=== PATIENT | female | born 1925 | race Caucasian/White ===

== ENCOUNTER 2016-10-31 12:27 | Emergency (ER) | payer OTHER, MEDICARE, BC ==
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
[2016-10-31] MEDS ORDERED: DIPH/PERTUSS(ACELL)/TETANUS VAC/PF 0.5 ML SYR (>=10YO) IM ONE (16:15)
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
[2016-10-31 18:56] VITALS: BP 144/80
== END 2016-10-31 18:30 | disposition home or self-care (01) ==
LOC: ER 12:27
DX: S81.812A Laceration without foreign body, left lower leg, initial encounter (principal); S20.212A Contusion of left front wall of thorax, initial encounter; R07.81 Pleurodynia; M79.662 Pain in left lower leg; V49.50XA Passenger injured in collision with unspecified motor vehicles in traffic accident, initial encounter; I10 Essential (primary) hypertension; Z85.828 Personal history of other malignant neoplasm of skin; Z23 Encounter for immunization
CPT/HCPCS: 71020; 71250; 90471; 90715; 99284

== ENCOUNTER 2017-01-19 07:23 | Emergency (ER) | payer MEDICARE, BC ==
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
[2017-01-19 08:10] LABS: PROTHROMBIN TIME 12.5 SEC (11.4-15.4)
[2017-01-19 08:11] LABS: ABSOLUTE EOSINOPHILS # (AUTO) 0.1 10^3/uL (0.0-0.6); ABSOLUTE LYMPHOCYTES (AUTO) 1.2 10^3/uL (0.5-4.7); ABSOLUTE MONOCYTES (AUTO) 0.6 10^3/uL (0.1-1.4); ABSOLUTE NEUT (AUTO) 4.2 10^3/uL (1.7-8.2); ALANINE AMINOTRANSFERASE 38 U/L (9-52); ALBUMIN 3.8 g/dL (3.5-5.0); ALKALINE PHOSPHATASE 89 U/L (38-126); ANION GAP 10 (5-19); ASPARTATE AMINO TRANSFERASE 30 U/L (14-36); BASOPHILS % (AUTO) 0.6 % (0-2); BILIRUBIN,DIRECT 0.3 mg/dL (0.0-0.4); BILIRUBIN,TOTAL 0.4 mg/dL (0.2-1.3); BLOOD UREA NITROGEN 15 mg/dL (7-20); CALCIUM 8.8 mg/dL (8.4-10.2); CARBON DIOXIDE 25 mmol/L (22-30); CHLORIDE 107 mmol/L (98-107); CREATINE KINASE 174 U/L (30-135); EOSINOPHILS % (AUTO) 1.7 % (0-6); GLUCOSE 104 mg/dL (75-110); HEMOGLOBIN 13.3 g/dL (12.0-15.5); HGB HCT DIFFERENCE -1.1; LYMPHOCYTES % (AUTO) 19.2 % (13-45); MEAN CORPUSCULAR HEMOGLOBIN 29.9 pg (27.0-33.4); MEAN CORPUSCULAR HGB CONC 32.3 g/dL (32.0-36.0); MEAN CORPUSCULAR VOLUME 93 fl (80-97); MONOCYTES % (AUTO) 10.2 % (3-13); PARTIAL THROMBOPLASTIN TIME 25.8 SEC (23.5-35.8); POTASSIUM 4.1 mmol/L (3.6-5.0); RED BLOOD COUNT 4.43 10^6/uL (3.72-5.28); SEGMENTED NEUTROPHILS % (AUTO) 68.3 % (42-78); SODIUM 142.4 mmol/L (137-145); TOTAL PROTEIN 6.9 g/dL (6.3-8.2); WHITE BLOOD COUNT 6.2 10^3/uL (4.0-10.5)
[2017-01-19 08:24] LABS: CREATINE KINASE MB 9.57 ng/mL (<4.55); TROPONIN I 0.02 ng/mL
--- NOTE | 2017-01-19 08:43 | EKG REPORT ---
SEVERITY:- ABNORMAL ECG - SINUS RHYTHM SINUS ARRHYTHMIA BORDERLINE LEFT AXIS DEVIATION CONSIDER ANTERIOR INFARCT : Confirmed by: Amy Dunlap 19-Jan-2017 08:43:02
--- NOTE | 2017-01-19 08:46 | RADIOLOGY REPORT (SQ) ---
EXAM DESCRIPTION: CT HEAD WITHOUT COMPLETED DATE/TIME: 01/19/2017 8:24 am REASON FOR STUDY: fall, dizziness COMPARISON: None. TECHNIQUE: Axial images acquired through the brain without intravenous contrast. Images reviewed wi th bone, brain and subdural windows. Images stored on PACS. All CT scanners at this facility use dose modulation, iterative reconstruction, and/or weight based d osing when appropriate to reduce radiation dose to as low as reasonably achievable (ALARA). [facility]: Dose Right [facility]: CareDose [facility]: Dose Right [facility]: Teradose 4D [facility]: Smart [employer] Systems RADIATION DOSE: Up-to-date CT equipment and radiation dose reduction techniques were employed. CTDIv ol: 64.6 mGy. DLP: 1034 mGy-cm. mGy. LIMITATIONS: None. FINDINGS: VENTRICLES: Mild prominence of the ventricles and to a lesser extent the cortical sulci pr obably related to the atrophy. NPH cannot be excluded. CEREBRUM: No masses. No hemorrhage. No midline shift. Normal whitehead/white matter differentiation. N o evidence for acute infarction. CEREBELLUM: No masses. No hemorrhage. No alteration of density. No evidence for acute infarction. EXTRAAXIAL SPACES: No fluid collections. No masses. ORBITS AND GLOBE: No intra- or extraconal masses. Normal contour of globe without masses. CALVARIUM: No fracture. PARANASAL SINUSES: No fluid or mucosal thickening. SOFT TISSUES: No mass or hematoma. OTHER: No other significant finding. IMPRESSION: 1. No evidence of acute event. 2. Prominence of the ventricles and to a lesser extent the cortical sulci probably related to atroph y. NPH would be additional consideration. TECHNICAL DOCUMENTATION: JOB ID: [id number] Quality ID # [id number]: Final reports with documentation of one or more dose reduction techniques (e.g., Au tomated exposure control, adjustment of the mA and/or kV according to patient size, use of iterative reconstruction technique) 2010 [employer]- All Rights Reserved
--- NOTE | 2017-01-19 08:52 | RADIOLOGY REPORT (SQ) ---
EXAM DESCRIPTION: CHEST SINGLE VIEW COMPLETED DATE/TIME: 01/19/2017 8:29 am REASON FOR STUDY: fall, dizziness COMPARISON: 10/31/2016 EXAM PARAMETERS: NUMBER OF VIEWS: One view. TECHNIQUE: Single frontal radiographic view of the chest acquired. RADIATION DOSE: NA LIMITATIONS: None. FINDINGS: LUNGS AND PLEURA: No opacities, masses or pneumothorax. No pleural effusion. MEDIASTINUM AND HILAR STRUCTURES: No masses. Contour normal. HEART AND VASCULAR STRUCTURES: Heart normal in size. Normal vasculature. BONES: No acute findings. HARDWARE: None in the chest. OTHER: No other significant finding. IMPRESSION: NO ACUTE RADIOGRAPHIC FINDING IN THE CHEST. TECHNICAL DOCUMENTATION: JOB ID: [id number]
[2017-01-19 09:03] LABS: APPEARANCE,URINE CLEAR; BILIRUBIN,URINE NEGATIVE (NEGATIVE); GLUCOSE, URINE NEGATIVE (NEGATIVE); KETONES,URINE NEGATIVE (NEGATIVE); LEUKOCYTE ESTERASE,URINE NEGATIVE (NEGATIVE); NITRITE,URINE NEGATIVE (NEGATIVE); PROTEIN,URINE NEGATIVE (NEGATIVE); URINE SPECIFIC GRAVITY 1.009; UROBILINOGEN,URINE NEGATIVE mg/dL (<2.0)
[2017-01-19 09:05] LABS: THYROID STIMULATING HORMONE 1.81 uIU/mL (0.47-4.68)
[2017-01-19 09:32] LABS: URINE BARBITURATES SCREEN NEGATIVE; URINE METHADONE SCREEN NEGATIVE; URINE OPIATES LOW NEGATIVE; URINE PHENCYCLIDINE SCREEN NEGATIVE
[2017-01-19] MEDS ORDERED: DIAZEPAM 2 MG TABLET PO ONE (12:14)
[2017-01-19 15:02] VITALS: BP 129/86
== END 2017-01-19 15:04 | disposition short-term general hospital (02) ==
LOC: ER 07:23
DX: I49.5 Sick sinus syndrome (principal); R42 Dizziness and giddiness; S00.01XA Abrasion of scalp, initial encounter; W18.30XA Fall on same level, unspecified, initial encounter; Y92.009 Unspecified place in unspecified non-institutional (private) residence as the place of occurrence of the external cause; I10 Essential (primary) hypertension; E78.00 Pure hypercholesterolemia, unspecified; Z85.828 Personal history of other malignant neoplasm of skin
CPT/HCPCS: 93005; 99285; 36415; 84439; 82553; 82550; 83735; 84443; 85025; 85610; 85730; 80053; 81001; 84484; 80307; 83880; 71010; 70450; 93010; A9270; J3490

== ENCOUNTER 2017-04-24 08:50 | Day surgery (SDC) | payer MEDICARE, BC ==
[~2017-04-24 08:50] MED LIST: BUPIVACAINE HCL 0.75% INJ/PF (7.5 MG/1 ML) 10 ML SDV ONE; LIDOCAINE 2%/EPINEPHRINE INJ 20 ML VIAL ONE; POVIDONE-IODINE 5% OPH PREP SOLN 30 ML ONE; TETRACAINE HCL 0.5% OPH SOLN 2 ML ONE; THROMBIN (BOVINE) TOPICAL 5000 UNIT VIAL ONE
[2017-04-24] MEDS ORDERED: ONDANSETRON HCL INJ/PF 4 MG/2 ML SDV ONE (09:17)
[2017-04-24] MEDS ORDERED: FENTANYL CITRATE INJ/PF 100 MCG/2 ML AMPUL ONE (09:17)
[2017-04-24] MEDS ORDERED: MIDAZOLAM 2 MG/2 ML INJ ONE (09:17)
[2017-04-24] MEDS ORDERED: PROPOFOL INJ 200 MG/20 ML VIAL IV ONE (09:18)
[2017-04-24] MEDS ORDERED: LIDOCAINE 2% INJ-PF (100 MG/5 ML) SYRINGE ONE (09:18)
[2017-04-24] MEDS: NEO/POLYMYX B SULF/DEXAMETH OPH OINTMENT 3.5 GM ONE ×2 (10:25→10:30)
--- NOTE | 2017-04-24 11:32 | [facility] OPERATIVE REPORT E ---
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 PROCEDURE PERFORMED: Bilateral lateral canthal tarsorrhaphy. SURGEON: MICHELL JOHNSON M.D. ANESTHESIA: Local with MAC. DESCRIPTION OF PROCEDURE: The patient was brought to the operating room and tetracaine drops were placed in the eye. Both eyes were sterilely prepped and draped in the usual manner. Under monitored Anesthesia care, local anesthesia was administered. This consisted of approximately 3 mL of 2% Xylocaine with epinephrine. This was administered in the lateral upper and lower lids on both eyes. Attention was directed to the left lid where approximately 5 mm lateral to the canthus, an #11 blade was used to pamela the lid margin. A scleral shield had been placed on the eye prior to this. A strip of the tarsal edge of the lower lid was removed to the lateral canthus. An identical procedure was performed on the left upper lid, leaving exposed lid margins on both upper and lower lids. Cautery was applied. A mattress 5-0 Vicryl suture was placed, tying the knot temporarily, reapproximating the lid margins, creating the tarsorrhaphy. One additional Chromic suture was placed externally. Attention was directed to the right lateral canthal area and an identical procedure was performed. An additional 5-0 Chromic suture was placed. Maxitrol ointment was placed on both incisions. The scleral corrigan were removed. There was good approximation of the lid margins with no entropion and ectropion, and ability of the patient to achieve closure of her lids. The patient was sent to the recovery room in good condition. DICTATING PHYSICIAN: MICHELL JOHNSON M.D. [id number] PHY#: [id number] ID: [id number] JOB#: [id number] ACCT: [id number] cc:MICHELL JOHNSON M.D. >
--- NOTE | 2017-04-24 11:37 | [facility] DISCHARGE SUMMARY E ---
[facility] Discharge Summary NAME: EULALIA AMADOR AGE: 89Y ADMITTED: 04/24/2017 DISCHARGED: 04/24/2017 HOSPITAL COURSE: The patient is an 89-year-old lady who has developed a lid retraction causing inability for her to close her eyelids, the right greater than the left. This created exposure keratitis and a constant foreign body sensation. She underwent uneventful bilateral lateral tarsorrhaphies. She will be discharged to home. She was instructed to use a blepharoplasty ice pack 10 minutes out of every hour while awake, to use Maxitrol ointment twice a day on the incision area, to follow up in my office in 1 day. DICTATING PHYSICIAN: MICHELL JOHNSON M.D. [id number] PHY#: [id number] ID: [id number] JOB#: [id number] ACCT: [id number] cc:MICHELL JOHNSON M.D. >
== END 2017-04-24 11:15 | disposition home or self-care (01) ==
LOC: SC 08:50
PROVIDERS: ATTEND Ophthalmology
PROC: 08QNXZZ Repair Right Upper Eyelid, External Approach (ICD-10-PCS; 2017-04-24)
PROC: 08QPXZZ Repair Left Upper Eyelid, External Approach (ICD-10-PCS; 2017-04-24)
PROC: 08QQXZZ Repair Right Lower Eyelid, External Approach (ICD-10-PCS; 2017-04-24)
PROC: 08QRXZZ Repair Left Lower Eyelid, External Approach (ICD-10-PCS; principal; 2017-04-24 09:45)
DX: H16.213 Exposure keratoconjunctivitis, bilateral (principal); Z96.1 Presence of intraocular lens; I10 Essential (primary) hypertension; E78.00 Pure hypercholesterolemia, unspecified; K21.9 Gastro-esophageal reflux disease without esophagitis; I49.9 Cardiac arrhythmia, unspecified; Z88.8 Allergy status to other drugs, medicaments and biological substances; Z79.82 Long term (current) use of aspirin; Z79.891 Long term (current) use of opiate analgesic; Z79.899 Other long term (current) drug therapy; Z95.0 Presence of cardiac pacemaker
CPT/HCPCS: 67880; J3490 ×4; J3010; J2001; J2405; J2704; 103; J2250